=== PATIENT | female | born 1945 | race Caucasian/White ===

== ENCOUNTER 2019-02-23 23:11 | Emergency (ER) | payer MEDICARE ==
[~2019-02-23] VITALS: Ht 154.9 cm; Wt 90.7 kg
[2019-02-23 23:39] VITALS: BP 224/88
--- NOTE | 2019-02-23 23:59 | NUR ---
SEEN AND EXAMINED BY .
[2019-02-24] MEDS ORDERED: PENICILLIN V POTASSIUM 500 MG TABLET PO ONE ×2 (00:08→00:30)
--- NOTE | 2019-02-24 00:25 | NUR ---
Patient discharged to home in stable condition. Written and verbal after care instructions given. Patient verbalizes understanding of instruction.
== END 2019-02-24 00:28 | disposition home or self-care (01) ==
LOC: ER 23:16
DX: K13.0 Diseases of lips (principal); Z85.3 Personal history of malignant neoplasm of breast; Z85.840 Personal history of malignant neoplasm of eye; Z88.8 Allergy status to other drugs, medicaments and biological substances; Z88.4 Allergy status to anesthetic agent; Z91.018 Allergy to other foods